=== PATIENT | male | born 1980 | race Two or more races ===

== ENCOUNTER 2021-01-11 12:39 | Emergency (ER) | payer OTHER ==
[~2021-01-11] VITALS: Ht 177.8 cm; Wt 85.0 kg
[2021-01-11 12:50] VITALS: BP 146/96
--- NOTE | 2021-01-11 13:23 | PHYS DOC ---
Past Medical History Past Surgical History: No Surgical History General Adult EDM: Chief Complaint: LACERATION/AVULSION HPI: HPI: Patient is a 40 year old Mongolian speaking male who presents with 2 cm laceration to his left thumb. His who speaks both Comoran and Mongolian helps in providing history. Patient states that he was using a saw cutting wood about 20 minutes [employer] when he cut his left thumb. He states that the wound bled minimally and he rinsed it with water immediately. He reports 5 out of 10 pain and denies paresthesias. He states that his tetanus vaccination is not up-to-date. Patient reports he has no other injuries. Patient denies fever, headache, dizziness, vision changes, cough, shortness of breath, chest pain, palpitations and has no other complaints at this time. Review of Systems: Review of Systems: ROS negative except as mentioned in HPI. Heart Score: C/O Chest Pain: No Risk Factors: Risk Factors: DM, Current or recent (<one month) smoker, HTN, HLP, family history of CAD, obesity. Risk Scores: Score 0 - 3: 2.5% MACE over next 6 weeks - Discharge Home Score 4 - 6: 20.3% MACE over next 6 weeks - Admit for Clinical Observation Score 7 - 10: 72.7% MACE over next 6 weeks - Early Invasive Strategies Allergies: Allergies: Allergies Coded Allergies Type Severity Reaction Last Updated Verified No Known Drug Allergies 01/11/21 No Physical Exam: PE: Constitutional: Well developed, well nourished, no acute distress, non-toxic appearance. [] HENT: Normocephalic, atraumatic, bilateral external ears normal, oropharynx moist, no oral exudates, nose normal. [] Eyes: PERRLA, EOMI, conjunctiva normal, no discharge. [] Cardiovascular:Heart rate regular rhythm, no murmur [] Lungs & Thorax: Bilateral breath sounds clear to auscultation [] Skin: Warm, dry, no erythema, no rash. [] Extremities: Left thumb has a 2 cm laceration to the dorsal aspect just proximal the IP joint. Full range of motion with some tenderness. There were additional abrasions, one towards the lateral aspect of the first digit fingernail, the other at the base of digit 1. Neurovascular intact. Left digit 2: Abrasion present to the lateral aspect of the proximal second digit. The abrasion was not bleeding at the time of exam. Other extremities are without trauma, cyanosis, clubbing, edema. ROM intact. [] Neurologic: Alert and oriented X 3, normal motor function, normal sensory function, no focal deficits noted. [] Current Patient Data: Vital Signs: Vital Signs Date Time Temp Pulse Resp B/P (MAP) Pulse Ox O2 Delivery O2 Flow Rate FiO2 01/11/21 12:50 97.9 99 16 146/96 99 97.9 EKG: EKG: [] Radiology/Procedures: Radiology/Procedures: [] Course & Med Decision Making: Course & Med Decision Making Pertinent Labs and Imaging studies reviewed. (See chart for details) Patient was given tetanus vaccine while in the emergency department. Patient tolerated the procedure well and understands care and follow-up instructions. Dragon Disclaimer: Ashley Disclaimer: This electronic medical record was generated, in whole or in part, using a voice recognition dictation system. Departure Departure Impression: Primary Impression: Laceration of thumb, left Disposition: HOME / SELF CARE / HOMELESS Condition: STABLE Patient Instructions: Laceration Care, Adult, [id number] Additional Instructions: Cleanse the wound with running water only once per day. You may use an antibiotic ointment, cream, or spray after cleansing the wound. Keep covered during the day and/or while working. May do this by wrapping with gauze or wearing a clean glove. Laceration Repair Lac Repair Indication: Laceration to dorsal aspect of left thumb Procedure: The patient was placed in the appropriate position and anesthesia around the lac was 1% lidocaine plain. The area was then cleansed. The laceration was closed with four 5-0 nylon sutures. The wound area was then dressed with xeroform and gauze. Total repaired wound length: 2 cm. Other Items: There were additional wounds surrounding the laceration that were not able to be sutured. They were covered with Xeroform and gauze. The patient tolerated the procedure well. Complications: Laceration repair proceeded without complications. PIO VIVAS Jan 11, 2021 13:23
[2021-01-11] MEDS ORDERED: LIDOCAINE 1% Multi-Dose 20 ML VIAL. ID ONE (13:30)
[2021-01-11] MEDS ORDERED: DIPH,PERTUSS(ACELL),TET VAC/PF 0.5 ML SYRINGE. VAX IM ONE (14:00)
== END 2021-01-11 14:45 | disposition home or self-care (01) ==
LOC: ER 12:39
DX: S61.012A Laceration without foreign body of left thumb without damage to nail, initial encounter (principal); W26.8XXA Contact with other sharp object(s), not elsewhere classified, initial encounter; Y93.89 Activity, other specified; Y92.89 Other specified places as the place of occurrence of the external cause; Y99.8 Other external cause status
CPT/HCPCS: 12001; 90471; 90715; 99283; J3490